=== PATIENT | female | born 1985 | race Caucasian/White ===

== ENCOUNTER 2018-07-26 09:41 | Day surgery (SDC) | payer BC ==
[2018-07-26] MEDS ORDERED: Midazolam 1 MG/ML 2 ML SDV ONE (09:47)
[2018-07-26] MEDS ORDERED: fentaNYL 100 MCG/2 ML SDV ONE (10:16)
[2018-07-26] MEDS ORDERED: Rocuronium 10 MG/ML 10 ML Syringe ONE (10:17)
[2018-07-26] MEDS ORDERED: Dexamethasone 4 MG/ML 5 ML MDV ONE (10:17)
[2018-07-26] MEDS ORDERED: Ketorolac 30 MG/ML SDV ONE (10:17)
[2018-07-26] MEDS ORDERED: Ondansetron 4 MG/2 ML SDV ONE (10:17)
[2018-07-26] MEDS ORDERED: Propofol 200 MG/20 ML SDV ONE (10:17)
[2018-07-26] MEDS ORDERED: Phenylephrine/Normal Saline 100 MCG/ML 10 ML Syringe ONE (10:17)
--- NOTE | 2018-07-26 10:34 | PCM.PREANE ---
Preanesthetic Assessment - Procedure Proposed Procedure: Hysteroscopy, diagnostic w/fractional D & C - Anesthesia/Transfusion/Family Hx Anesthesia History: Prior Anesthesia Without Reaction Other Type of Anesthesia Reaction Comment: pt has only had wisdom teeth extraction Family History of Anesthesia Reaction: No Transfusion History: No Prior Transfusion(s) Additional History: narcotic nausea prone - Review of Systems General: No Symptoms Pulmonary: No Symptoms Cardiovascular: No Symptoms Gastrointestinal: No Symptoms Neurological: No Symptoms Other: Reports: None - Physical Assessment NPO Status Date: 07/25/18 NPO Status Time: 22:00 O2 Sat by Pulse Oximetry: 100 Respiratory Rate: 16 Vital Signs: Last Vital Signs Temp 97.7 F 07/26/18 09:55 Pulse 85 07/26/18 09:55 Resp 16 07/26/18 09:55 BP 130/89 07/26/18 09:55 Pulse Ox 100 07/26/18 09:55 Height: 5 ft 6 in Weight: 135 lb ASA Class: 1 Mental Status: Alert & Oriented x3 Airway Class: Mallampati = 1 Dentition: Reports: Normal Dentition Thyro-Mental Finger Breadths: 3 Mouth Opening Finger Breadths: 3 Lungs: Clear to Auscultation, Normal Respiratory Effort Cardiovascular: Regular Rate, Regular Rhythm, No Murmurs - Lab Values: Laboratory Last Values WBC 6.29 K/uL (4.0-11.0) 07/26/18 10:10 RBC 4.42 M/uL (4.30-5.90) 07/26/18 10:10 Hgb 14.2 g/dL (12.0-16.0) 07/26/18 10:10 Hct 41.3 % (36.0-46.0) 07/26/18 10:10 MCV 93.4 fL (80.0-98.0) 07/26/18 10:10 MCH 32.1 pg (27.0-32.0) H 07/26/18 10:10 MCHC 34.4 g/dL (31.0-37.0) 07/26/18 10:10 RDW Std Deviation 44.3 fl (28.0-62.0) 07/26/18 10:10 RDW Coeff of Gilbert 13 % (11.0-15.0) 07/26/18 10:10 Plt Count 256 K/uL (150-400) 07/26/18 10:10 MPV 10.20 fL (7.40-12.00) 07/26/18 10:10 Neut % (Auto) 55.1 % (48.0-80.0) 07/26/18 10:10 Lymph % (Auto) 32.3 % (16.0-40.0) 07/26/18 10:10 [place] % (Auto) 9.5 % (0.0-15.0) 07/26/18 10:10 Eos % (Auto) 2.5 % (0.0-7.0) 07/26/18 10:10 Baso % (Auto) 0.6 % (0.0-1.5) 07/26/18 10:10 Neut # (Auto) 3.5 K/uL (1.4-5.7) 07/26/18 10:10 Lymph # (Auto) 2.0 K/uL (0.6-2.4) 07/26/18 10:10 [place] # (Auto) 0.6 K/uL (0.0-0.8) 07/26/18 10:10 Eos # (Auto) 0.2 K/uL (0.0-0.7) 07/26/18 10:10 Baso # (Auto) 0.0 K/uL (0.0-0.1) 07/26/18 10:10 Nucleated RBC % 0.0 /100WBC 07/26/18 10:10 Nucleated RBCs # 0 K/uL 07/26/18 10:10 Urine HCG, Qual NEGATIVE (NEGATIVE) 07/26/18 09:55 - Allergies Allergies/Adverse Reactions: Allergies Allergy/AdvReac Type Severity Reaction Status Date / Time hydrocodone Allergy Nausea and Verified 07/22/18 16:08 Vomiting - Blood Blood Available: No Product(s) Available: None - Anesthesia Plan Pre-Op Medication Ordered: None - Acknowledgements Anesthesia Type Planned: General Anesthesia (LMA) Pt an Appropriate Candidate for the Planned Anesthesia: Yes Alternatives and Risks of Anesthesia Discussed w Pt/Guardian: Yes Pt/Guardian Understands and Agrees with Anesthesia Plan: Yes PreAnesthesia Questionnaire HEENT History: Reports: Allergic Rhinitis, Other (See Below) Other HEENT History: wisdom teeth extraction Cardiovascular History: Reports: Hypertension Other Cardiovascular History: induced HTN Respiratory History: Reports: None Gastrointestinal History: Reports: None Genitourinary History: Reports: None LICENSED CLINICIAN History: Reports: Musculoskeletal History: Reports: None Neurological History: Reports: None Psychiatric History: Reports: None Endocrine/Metabolic History: Reports: None Hematologic History: Reports: None Immunologic History: Reports: None Oncologic (Cancer) History: Reports: None Dermatologic History: Reports: None - Past Surgical History Head Surgeries/Procedures: Reports: None Female Surgical History: Reports: Section - SUBSTANCE USE Smoking Status *Q: Never Smoker Recreational Drug Use History: No - HOME MEDS Home Medications: Home Meds Norethindrone [Aygestin] 5 mg PO DAILY 07/22/18 [History] - CURRENT (IN HOUSE) MEDS Current Meds: Current Medications Discontinued Medications Dexamethasone (Dexamethasone) Confirm Administered Dose 20 mg .ROUTE .STK-MED ONE Stop: 07/26/18 10:18 Fentanyl (Sublimaze) Confirm Administered Dose 100 mcg .ROUTE .STK-MED ONE Stop: 07/26/18 10:17 Lidocaine HCl (Xylocaine-Mpf 1%) Confirm Administered Dose 5 mls @ as directed .ROUTE .STK-MED ONE Stop: 07/26/18 10:18 Ketorolac Tromethamine (Toradol) Confirm Administered Dose 30 mg .ROUTE .STK- MED ONE Stop: 07/26/18 10:18 Midazolam HCl (Versed 1 Mg/Ml) Confirm Administered Dose 2 mg .ROUTE .STK-MED ONE Stop: 07/26/18 09:48 Ondansetron HCl (Zofran) Confirm Administered Dose 4 mg .ROUTE .STK-MED ONE Stop: 07/26/18 10:18 Phenylephrine HCl (Phenylephrine In Ns 100 Mcg/Ml) Confirm Administered Dose 1 mg .ROUTE .STK-MED ONE Stop: 07/26/18 10:18 Propofol (Diprivan 20 Ml) Confirm Administered Dose 200 mg .ROUTE .STK-MED ONE Stop: 07/26/18 10:18 Rocuronium [place] (Zemuron) Confirm Administered Dose 100 mg .ROUTE .STK-MED ONE Stop: 07/26/18 10:18
[2018-07-26] MEDS ORDERED: fentaNYL 100 MCG/2 ML SDV IVPUSH PRN (11:38)
[2018-07-26] MEDS ORDERED: Ketorolac 15 MG/ML SDV IM ONE (11:53)
[2018-07-26] MEDS ORDERED: Lactated Ringers 1,000 ML IV SCH (12:00)
--- NOTE | 2018-07-26 12:01 | PCM.POSTAN ---
POST ANESTHESIA ASSESSMENT - MENTAL STATUS Mental Status: Alert, Oriented - RESPIRATORY Respiratory Status: Respiratory Rate WNL, Airway Patent, O2 Saturation Stable - CARDIOVASCULAR CV Status: Pulse Rate WNL, Blood Pressure Stable - GASTROINTESTINAL GI Status: No Symptoms - POST OP HYDRATION Hydration Status: Adequate & Stable
--- NOTE | 2018-07-26 12:02 | PCM.OPNOTE ---
- General Post-Op/Procedure Note Date of Surgery/Procedure: 07/26/18 Operative Procedure(s): Hysteroscopy, polypectomy and Dilatation with curettage Findings: Endometrial polyp right lateral wall. Secretory phase looking endometrium. Both fallopian tubes ostia visualized Pre Op Diagnosis: Endometrial Polyp Post-Op Diagnosis: Same Anesthesia Technique: General ET Tube Primary Surgeon: Razia Grace Pathology: Endometrial polyp, Endometrial curettings EBL in mLs: 10 Complications: None Condition: Good
--- NOTE | 2018-07-26 12:20 | PCM48HPAN ---
Post Anesthesia Note - EVALUATION WITHIN 48HRS OF ANESTHETIC Vital Signs in Normal Range: Yes Patient Participated in Evaluation: Yes Respiratory Function Stable: Yes Airway Patent: Yes Cardiovascular Function Stable: Yes Hydration Status Stable: Yes Pain Control Satisfactory: Yes Nausea and Vomiting Control Satisfactory: Yes Mental Status Recovered: Yes Resp Rate: 16
[2018-07-26] MEDS ORDERED: Promethazine 25 MG/ML SDV IM ONE (12:26)
[2018-07-26 12:42] VITALS: BP 124/70
--- NOTE | 2018-07-26 19:54 | OR ---
SURGEON: Razia Grace MD DATE OF PROCEDURE: 07/26/2018 PREOPERATIVE DIAGNOSIS: Endometrial polyp. POSTOPERATIVE DIAGNOSIS: Endometrial polyp. PROCEDURE: Hysteroscopy, polypectomy and dilatation with curettage. ANESTHESIA: General endotracheal. ESTIMATED BLOOD LOSS: Minimal. COMPLICATIONS: None. DISPOSITION: Stable to recovery room. PATHOLOGY: Endometrial polyp and endometrial curettings. FINDINGS: Mobile retroverted uterus sounded to 8 cm. No cervical lesions visualized and no adnexal masses palpable. Hysteroscopic findings revealed a solitary endometrial polyp located on the right lateral wall towards the fundus. The endometrium was otherwise normal in appearance. Both fallopian tube ostia were visualized. BRIEF HISTORY: The patient is a 33-year-old lady, who was found to have an endometrial polyp on office sonohysterogram. The findings were reviewed with the patient and she accepted to proceed with hysteroscopic polypectomy. The risks of the procedure were discussed with the patient in detail including, but not limited to bleeding, infection, injury to the uterus, cervix, and other surrounding organs. Appropriate surgical consent was obtained. DESCRIPTION OF PROCEDURE: The patient was taken to the operating room, where she underwent induction of general anesthesia without difficulty. After adequate level of anesthesia, she was placed in dorsal lithotomy position, prepped and draped in the usual sterile fashion for vaginal procedure. The bladder was emptied. A time-out was held. SCDs were in place. Examination under anesthesia revealed the aforementioned findings. A bivalve side open speculum was placed in the vagina and the anterior lip of the cervix was grasped with an Allis clamp. The uterus cavity was sounded to a depth of 8 cm. The cervical os was then serially dilated up to number #7 Hegar dilator. The 6.5 mm MyoSure operative hysteroscope was inserted into the uterine cavity under direct visualization using normal saline as a distention media. Upon entering the uterine cavity, the aforementioned pathology was noted. The outflow channel of the MyoSure device was then removed. Under direct visualization, the MyoSure tissue retrieval device was inserted through this channel. The retrieval device was then aligned along the polyp and the polyp was resected easily completely.Survey of the uterine cavity post resection revealed no uterine wall injury. The MyoSure device was then removed from the cavity. Gentle endometrial curettage was performed. Once this was completed, all instruments were removed from the patient's vagina and the area in the cervix where the Allis clamp was placed, was found to be hemostatic. All sponge, instrument counts were correct at the end of the procedure. The input and output of normal saline were recorded by the ams AG fluid management system. Please refer to the nursing chart for the amount. The patient was taken to the recovery room in stable condition. SORIN / HUY /[id number]
== END 2018-07-26 13:00 | disposition home or self-care (01) ==
LOC: MW.SDS 09:41
PROVIDERS: ATTEND Obstetrics & Gynecology
DX: N84.0 Polyp of corpus uteri (principal); Z88.5 Allergy status to narcotic agent
CPT/HCPCS: 36415; 58558; 81025; 85025; J1100; J1885; J2250; J2405; J2704; J3010; 00952; 88305; J2370